=== PATIENT | female | born 1985 | race Caucasian/White ===

== ENCOUNTER 2021-08-10 11:56 | Emergency (ER) | payer OTHER ==
[2021-08-10 12:11] VITALS: TEMP 97.9; BMI 21.6
[2021-08-10] MEDS ORDERED: SODIUM CHLORIDE 0.9% 1000 ML INFUS.BAG IV ONE (12:53)
[2021-08-10] MEDS ORDERED: THIAMINE HCL 100 MG TABLET (FP) PO ONE (12:54)
[2021-08-10] MEDS ORDERED: FOLIC ACID 1 MG TABLET (FP) PO ONE (12:54)
[2021-08-10] MEDS ORDERED: FOLIC ACID 1 MG TABLET (FP) ONE (13:19)
[2021-08-10] MEDS ORDERED: THIAMINE HCL 100 MG TABLET (FP) ONE (13:19)
[2021-08-10 13:30] LABS: METHADONE, UR NEGATIVE (NEGATIVE); OPIATES, URI NEGATIVE (NEGATIVE); URINE BARBITURATES NEGATIVE (NEGATIVE)
[2021-08-10 13:31] LABS: COCAINE, UR NEGATIVE (NEGATIVE); URINE AMPHETAMINES NEGATIVE (NEGATIVE)
[2021-08-10 13:35] LABS: CHLORIDE 99 mmol/L (98-107); SODIUM 139 mmol/L (136-145)
[2021-08-10 13:37] LABS: PHENCYCLIDINE,URINE NEGATIVE (NEGATIVE); URINE BENZODIAZEPINES POSITIVE (NEGATIVE)
[2021-08-10 13:37] LABS: ALBUMIN 4.8 g/dl (3.4-5.0); ANION GAP 13 MMOL/L (8-16); BLOOD UREA NITROGEN 13.9 mg/dL (7-18); CALCIUM 9.7 mg/dL (8.5-10.1); CO2 27 mmol/L (21-32); GLUCOSE,RANDOM 75 mg/dL (74-106); MAGNESIUM 2.5 mg/dL (1.8-2.4)
[2021-08-10 13:41] LABS: CREATININE 0.8 mg/dL (0.55-1.3); SGOT/AST 89 U/L (15-37); SGPT/ALT 75 U/L (13-61)
[2021-08-10 13:42] LABS: BILIRUBIN,TOTAL 1.3 mg/dL (0.2-1); TOT PROT 8.6 g/dl (6.4-8.2)
[2021-08-10 13:43] LABS: ALK PHOS 91 U/L (45-117)
[2021-08-10 14:11] LABS: BASO % 0.3 % (0-2.0); EOS % 0.2 % (0-4.5); HEMATOCRIT 47.9 % (32.4-45.2); HEMOGLOBIN 16.1 GM/dL (10.7-15.3); LYMPH % 10.4 % (8-40); MCH 31.7 pg (25.7-33.7); MCHC 33.6 g/dl (32.0-36.0); MEAN CELL VOLUME 94.2 fl (80-96); MEAN PLT VOLUME 8.1 fl (7.5-11.1); MONO % 12.8 % (3.8-10.2); NEUT % 76.3 % (42.8-82.8); PLATELET COUNT 115 10^3/uL (134-434); RBC 5.09 M/mm3 (3.60-5.2); RDW 18.7 % (11.6-15.6); WHITE BLOOD COUNT 5.4 K/mm3 (4.0-10.0)
[2021-08-10 15:35] VITALS: BP 124/74; PULSE 82
== END 2021-08-10 15:47 | disposition home or self-care (01) ==
LOC: JER 11:56
DX: G40.89 Other seizures (principal); F10.20 Alcohol dependence, uncomplicated; R94.5 Abnormal results of liver function studies
CPT/HCPCS: 36415; 70450-TC; 80053; 80307; 82550; 82553; 83735; 84484; 84703; 85025; 93005; 93010; 99285-25